=== PATIENT | female | born 1995 | race Caucasian/White ===

== ENCOUNTER 2017-10-08 15:47 | Emergency (ER) | payer OTHER ==
[~2017-10-08] VITALS: Ht 165.1 cm; Wt 82.0 kg
[~2017-10-08 15:47] MED LIST: MELO7.5T27 PO
[2017-10-08 15:50] VITALS: BP 191/79; PULSE 78; RESP 18; TEMP 102.5; O2SAT 97
[2017-10-08 16:31] LABS: AUTOMATED NEUTROPHIL # 11.2 TH/MM3 (1.8-7.7); BASOPHIL # 0.1 TH/MM3 (0-0.2); BASOPHIL % 0.6 % (0.0-2.0); HEMATOCRIT 41.3 % (35.0-46.0); HEMOGLOBIN 14.8 GM/DL (11.6-15.3); LYMPH % 13.4 % (9.0-44.0); MEAN CELL VOLUME 81.3 FL (80.0-100.0); MEAN CORPUSCULAR HEMOGLOBIN 29.1 PG (27.0-34.0); MEAN CORPUSCULAR HGB CONC 35.8 % (32.0-36.0); MEAN PLATELET VOLUME 8.1 FL (7.0-11.0); MONO % 10.9 % (0.0-8.0); MONOCYTE # 1.6 TH/MM3 (0-0.9); NEUT % 75.1 % (16.0-70.0); PLATELET COUNT 164 TH/MM3 (150-450); RED BLOOD COUNT 5.08 MIL/MM3 (4.00-5.30); RED CELL DISTRIBUTION WIDTH 13.1 % (11.6-17.2)
[2017-10-08 16:42] LABS: BACTERIA, URINE MANY /hpf; BILIRUBIN, URINE NEG (NEG); BLOOD, URINE MOD (NEG); GLUCOSE,URINE NEG (NEG); KETONE, URINE TRACE mg/dL (NEG); MUCUS URINE MANY /lpf (OCC); NITRITE,URINE POS (NEG); SQUAMOUS EPITHELIAL CELL URINE 3 /hpf (0-5); URINE COLOR YELLOW (YELLW/STRAW); URINE LEUKOCYTE ESTERASE MOD (NEG)
--- NOTE | 2017-10-08 16:49 | PD ---
HPI Chief Complaint: Fever Time Seen by Provider: 16:18 Travel History International Travel<30 days: No Contact w/Intl Traveler<30days: No Traveled to known affect area: No History of Present Illness HPI The patient is a 21-year-old female who presents to the emergency department for fever. The patient states she developed a fever on Tuesday, subjective, did not check it with a thermometer at home. She has had subjective fever, occasional chills, dry nonproductive cough, and pleuritic chest pain. She does complain of mild nausea, vomiting, and diarrhea without any abdominal pain. She does complain of mild myalgias, denies any rash. The patient did receive an influenza vaccination this year. The patient did travel to [place] in July, unsure if it was an area festival with dengue. The patient denies any sick contacts at home. She does complain of mild dysuria but denies any frequency, urgency, vaginal discharge, vaginal bleeding. PFSH Past Medical History Medical History: Denies Significant Hx ?: Not LMP: 10/07/17 Past Surgical History Surgical History: No Previous Surgery Social History Tobacco Use: No Allergies-Medications (Allergen,Severity, Reaction): Coded Allergies: No Known Allergies (Verified Allergy, Unknown, 08/22/17) Reported Meds & Prescriptions Reported Meds & Active Scripts Active Bactrim DS (Sulfamethoxazole-Trimethoprim) 800-160 Mg Tab 1 Tab PO BID Meloxicam 7.5 Mg Tab 7.5 Mg PO DAILY Review of Systems Except as stated in HPI: all other systems reviewed are Neg General / Constitutional: Positive: Fever, Chills HENT: Positive: Headaches, Nosebleed, No: Congestion Cardiovascular: No: Chest Pain or Discomfort Respiratory: Positive: Cough, Pleuritic Pain, No: Shortness of Breath Gastrointestinal: Positive: Nausea, Vomiting, Diarrhea, Abdominal Pain Genitourinary: Positive: Dysuria, No: Discharge, Vaginal Bleeding Musculoskeletal: Positive: Myalgias Skin: No Rash Physical Exam Narrative GENERAL: Awake, alert, pleasant 21-year-old female who appears her stated age and is in no acute respiratory distress. SKIN: Focused skin assessment warm/dry. HEAD: Atraumatic. Normocephalic. EYES: Pupils equal and round. No scleral icterus. No injection or drainage. ENT: No nasal bleeding or discharge. Mucous membranes pink and moist. No erythema. NECK: Trachea midline. No JVD. No meningeal signs. CARDIOVASCULAR: Regular rate and rhythm. No murmur appreciated. Heart rate in the 80s. RESPIRATORY: No accessory muscle use. Clear to auscultation. Breath sounds equal bilaterally. GASTROINTESTINAL: Abdomen soft, mild epigastric tenderness. No guarding or rigidity. Back: No CVA tenderness. MUSCULOSKELETAL: No obvious deformities. No clubbing. No cyanosis. No edema. NEUROLOGICAL: Awake and alert. No obvious cranial nerve deficits. Motor grossly within normal limits. Normal speech. PSYCHIATRIC: Appropriate mood and affect; insight and judgment normal. Data Data Last Documented VS Vital Signs Date Time Temp Pulse Resp B/P (MAP) Pulse Ox O2 Delivery O2 Flow Rate FiO2 10/08/17 18:07 99.6 82 17 118/59 (78) 100 Room Air Orders Orders Sepsis Workup Initiated (10/08/17 ) Complete Blood Count With Diff (10/08/17 15:53) Comprehensive Metabolic Panel (10/08/17 15:53) Urinalysis - C+S If Indicated (10/08/17 15:53) Lactic Acid Sepsis Protocol (10/08/17 15:53) Blood Culture (10/08/17 15:53) Iv Access Insert/Monitor (10/08/17 15:53) Oxygen Administration (10/08/17 15:53) Oximetry (10/08/17 15:53) Blood Glucose (10/08/17 15:53) Chest, Single Ap (10/08/17 ) Influenzae A/B Antigen (10/08/17 16:24) Monoscreen (10/08/17 16:42) Urine Culture (10/08/17 16:15) Ceftriaxone Inj (Rocephin Inj) (10/08/17 17:00) Ondansetron Inj (Zofran Inj) (10/08/17 17:00) Ketorolac Inj (Toradol Inj) (10/08/17 17:00) Sodium Chlor 0.9% 1000 Ml Inj (Ns 1000 M (10/08/17 17:00) Labs Laboratory Tests Test 10/08/17 16:00 10/08/17 16:06 10/08/17 16:15 10/08/17 16:54 White Blood Count 15.0 TH/MM3 Red Blood Count 5.08 MIL/MM3 Hemoglobin 14.8 GM/DL Hematocrit 41.3 % Mean Corpuscular Volume 81.3 FL Mean Corpuscular Hemoglobin 29.1 PG Mean Corpuscular Hemoglobin Concent 35.8 % Red Cell Distribution Width 13.1 % Platelet Count 164 TH/MM3 Mean Platelet Volume 8.1 FL Neutrophils (%) (Auto) 75.1 % Lymphocytes (%) (Auto) 13.4 % Monocytes (%) (Auto) 10.9 % Eosinophils (%) (Auto) 0.0 % Basophils (%) (Auto) 0.6 % Neutrophils # (Auto) 11.2 TH/MM3 Lymphocytes # (Auto) 2.0 TH/MM3 Monocytes # (Auto) 1.6 TH/MM3 Eosinophils # (Auto) 0.0 TH/MM3 Basophils # (Auto) 0.1 TH/MM3 CBC Comment DIFF FINAL Differential Comment Blood Urea Nitrogen 10 MG/DL Creatinine 1.08 MG/DL Random Glucose 106 MG/DL Total Protein 8.7 GM/DL Albumin 3.5 GM/DL Calcium Level 9.1 MG/DL Alkaline Phosphatase 60 U/L Aspartate Amino Transf (AST/SGOT) 11 U/L Alanine Aminotransferase (ALT/SGPT) 15 U/L Total Bilirubin 0.5 MG/DL Sodium Level 136 MEQ/L Potassium Level 3.4 MEQ/L Chloride Level 103 MEQ/L Carbon Dioxide Level 25.7 MEQ/L Anion Gap 7 MEQ/L Estimat Glomerular Filtration Rate 65 ML/MIN Lactic Acid Level 1.1 mmol/L Urine Color YELLOW Urine Turbidity HAZY Urine pH 6.0 Urine Specific [place] 1.024 Urine Protein 100 mg/dL Urine Glucose (UA) NEG mg/dL Urine Ketones TRACE mg/dL Urine Occult Blood MOD Urine Nitrite POS Urine Bilirubin NEG Urine Urobilinogen LESS THAN 2.0 MG/DL Urine Leukocyte Esterase MOD Urine RBC 129 /hpf Urine WBC 56 /hpf Urine Squamous Epithelial Cells 3 /hpf Urine Bacteria MANY /hpf Urine Mucus MANY /lpf Microscopic Urinalysis Comment CULTURE INDICATED Monoscreen NEG MDM Medical Decision Making Medical Screen Exam Complete: Yes Emergency Medical Condition: Yes Medical Record Reviewed: Yes Interpretation(s) Last Impressions Chest X-Ray 10/08/17 0000 Signed Impressions: Service Date/Time: Sunday, October 08, 2017 16:54 - CONCLUSION: No acute disease. Silvestre Wadsworth MD Date/Time Source Procedure Growth Status 10/08/17 16:10 Blood Peripheral Aerobic Blood Culture Pending Received 10/08/17 16:10 Blood Peripheral Anaerobic Blood Culture Pending Received 10/08/17 16:05 Blood Peripheral Aerobic Blood Culture Pending Received 10/08/17 16:05 Blood Peripheral Anaerobic Blood Culture Pending Received 10/08/17 16:54 Nasal Aspirate Influenza Types A,B Antigen (RODRI) - Final NEGATIVE FOR FLU A AND B ANTIGEN.... Complete 10/08/17 16:15 Urine Clean Catch Urine Culture Pending Received Laboratory Tests Test 10/08/17 16:00 10/08/17 16:06 10/08/17 16:15 10/08/17 16:54 White Blood Count 15.0 TH/MM3 Red Blood Count 5.08 MIL/MM3 Hemoglobin 14.8 GM/DL Hematocrit 41.3 % Mean Corpuscular Volume 81.3 FL Mean Corpuscular Hemoglobin 29.1 PG Mean Corpuscular Hemoglobin Concent 35.8 % Red Cell Distribution Width 13.1 % Platelet Count 164 TH/MM3 Mean Platelet Volume 8.1 FL Neutrophils (%) (Auto) 75.1 % Lymphocytes (%) (Auto) 13.4 % Monocytes (%) (Auto) 10.9 % Eosinophils (%) (Auto) 0.0 % Basophils (%) (Auto) 0.6 % Neutrophils # (Auto) 11.2 TH/MM3 Lymphocytes # (Auto) 2.0 TH/MM3 Monocytes # (Auto) 1.6 TH/MM3 Eosinophils # (Auto) 0.0 TH/MM3 Basophils # (Auto) 0.1 TH/MM3 CBC Comment DIFF FINAL Differential Comment Blood Urea Nitrogen 10 MG/DL Creatinine 1.08 MG/DL Random Glucose 106 MG/DL Total Protein 8.7 GM/DL Albumin 3.5 GM/DL Calcium Level 9.1 MG/DL Alkaline Phosphatase 60 U/L Aspartate Amino Transf (AST/SGOT) 11 U/L Alanine Aminotransferase (ALT/SGPT) 15 U/L Total Bilirubin 0.5 MG/DL Sodium Level 136 MEQ/L Potassium Level 3.4 MEQ/L Chloride Level 103 MEQ/L Carbon Dioxide Level 25.7 MEQ/L Anion Gap 7 MEQ/L Estimat Glomerular Filtration Rate 65 ML/MIN Lactic Acid Level 1.1 mmol/L Urine Color YELLOW Urine Turbidity HAZY Urine pH 6.0 Urine Specific [place] 1.024 Urine Protein 100 mg/dL Urine Glucose (UA) NEG mg/dL Urine Ketones TRACE mg/dL Urine Occult Blood MOD Urine Nitrite POS Urine Bilirubin NEG Urine Urobilinogen LESS THAN 2.0 MG/DL Urine Leukocyte Esterase MOD Urine RBC 129 /hpf Urine WBC 56 /hpf Urine Squamous Epithelial Cells 3 /hpf Urine Bacteria MANY /hpf Urine Mucus MANY /lpf Microscopic Urinalysis Comment CULTURE INDICATED Monoscreen NEG Differential Diagnosis Differential diagnosis includes influenza, pyelonephritis, pneumonia, bronchitis , viral syndrome, mononucleosis, pharyngitis. Narrative Course IV was established, labs are drawn and sent, and the patient was placed on cardiac telemetry monitoring and continuous pulse oximetry monitoring. The patient received Toradol, Zofran, and 1 L of IV fluids. UA is positive for nitrates, blood, RBCs, WBCs, therefore, was administered Rocephin 1 g intravenously. The patient's white count was elevated at 15. Lactic is normal. Chest x-ray negative. Influenza screen negative. Blood cultures are pending. [place] screen is negative. The patient appears to have pyelonephritis, may be secondary to recent dehydration and/or viral syndrome. The patient did receive Rocephin, will discharge home on Bactrim twice a day for 10 days. Work excuse for today and tomorrow. She is advised to follow-up with her primary physician, Dr. Blackman. Temperature was rechecked, 99.6. Patient was reevaluated at 6:10 PM, she was feeling better, she was eating [employer]. Diagnosis Primary Impression: Pyelonephritis Patient Instructions: General Instructions Additional Instructions: Medications as directed. Work excuse for 2 days. Please provide the patient a copy of her lab results, chest x-ray results, influenza results at discharge. Return if symptoms worsen or progress. Alternate Tylenol and Motrin for pain and fever. Med/Other Pt SpecificInfo: Prescription(s) given Scripts Sulfamethoxazole-Trimethoprim (Bactrim DS) 800-160 Mg Tab 1 TAB PO BID for Infection, #20 TAB 0 Refills Prov: Irvin Ortiz MD 10/08/17 Disposition: DISCHARGE HOME Condition: Stable Irvin Ortiz MD Oct 08, 2017 16:49
[2017-10-08 16:55] LABS: ALBUMIN 3.5 GM/DL (3.4-5.0); ALT (GPT) 15 U/L (9-42); AST (GOT) 11 U/L (16-38); BICARBONATE 25.7 MEQ/L (21.0-32.0); BLOOD UREA NITROGEN 10 MG/DL (7-18); CALCIUM 9.1 MG/DL (8.5-10.1); CHLORIDE 103 MEQ/L (98-107); CREATININE 1.08 MG/DL (0.50-1.00); GLOMERULAR FILTRATION RATE 65 ML/MIN (>89); GLUCOSE,RANDOM 106 MG/DL (74-106); SODIUM (NA) 136 MEQ/L (136-145)
[2017-10-08 16:57] LABS: ALKALINE PHOSPHATASE 60 U/L (45-117); TOTAL BILIRUBIN ADULT 0.5 MG/DL (0.2-1.0); TOTAL PROTEIN 8.7 GM/DL (6.4-8.2)
[2017-10-08 17:00] VITALS: O2SAT 100
[2017-10-08] MEDS: KETOROLAC TROMETHAMINE 30 MG/ML (IVP) VIAL IV PUSH ONE (17:10)
[2017-10-08] MEDS: ONDANSETRON HCL 4 MG/2 ML VIAL IV PUSH ONE (17:10)
[2017-10-08] MEDS: cefTRIAXone INJ 1,000 MG in SODIUM CHLORIDE 0.9% INJ 100 ML IV ONE (17:10)
[2017-10-08] MEDS: SODIUM CHLOR 0.9% 1000 ML INJ 1,000 ML IV ONE (17:11)
--- NOTE | 2017-10-08 17:13 | RADRPT ---
EXAM DATE/TIME: 10/08/2017 16:54 [facility] COMPARISON: No previous studies available for comparison. INDICATIONS : Fever. MEDICAL HISTORY : None. SURGICAL HISTORY : None. ENCOUNTER: Initial ACUITY: 3 days PAIN SCORE: 0/10 LOCATION: Bilateral chest FINDINGS: A single view of the chest demonstrates the lungs to be symmetrically aerated without evidence of mas s, infiltrate or effusion. The cardiomediastinal contours are unremarkable. Osseous structures are intact. CONCLUSION: No acute disease. Silvestre Wadsworth MD on October 08, 2017 at 17:10 Board Certified Radiologist. This report was verified electronically.
[2017-10-08 17:34] LABS: MONOSCREEN NEG (NEG)
[2017-10-08 18:07] VITALS: BP 118/59; PULSE 82; RESP 17; TEMP 99.6; O2SAT 100
[2017-10-08] MEDS ORDERED: BACT800T5 PO (18:08)
== END 2017-10-08 18:36 | disposition home or self-care (01) ==
LOC: NEPE 15:47
DX: N12 Tubulo-interstitial nephritis, not specified as acute or chronic (principal); B96.20 Unspecified Escherichia coli [E. coli] as the cause of diseases classified elsewhere; R05 Cough; R11.2 Nausea with vomiting, unspecified; R19.7 Diarrhea, unspecified; R30.0 Dysuria; M79.1 Myalgia; Z79.899 Other long term (current) drug therapy
CPT/HCPCS: 71045; 80053; 81001; 83605; 85025; 86308; 87040; 87077; 87086; 87186; 87804; 96374; 96375; 99284; J0696; J1885; J2405; J7030